=== PATIENT | female | born 2000 | race Caucasian/White ===

== ENCOUNTER 2019-01-15 02:36 | Emergency (ER) | payer MEDICAID, SELFPAY ==
[2019-01-15 02:37] VITALS: BP 143/75; PULSE 105; RESP 16; TEMP 36.7; O2SAT 98; BMI 53.0
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
--- NOTE | 2019-01-15 02:58 | RAD_ITS ---
STUDY: X-RAY CHEST REASON FOR EXAM: Female, 18 years old. Pain TECHNIQUE: PA and lateral COMPARISON: None. FINDINGS: The lungs are clear and expanded. There is no demonstrated pleural abnormality. Normal size heart. Normal mediastinum and puneet. Normal visualized pulmonary arteries. Normal visualized aortic arch and descending thoracic aorta. Normal visualized thoracic spine. Normal visualized ribs, clavicles, and shoulders. There is no demonstrated abnormality of the visualized soft tissue structures of the upper abdomen. RAD/Chest PA and Lateral IMPRESSION: Normal x-ray examination of the chest. Electronically Signed: Isauro Giordano MD at 4:19 EDT , Service support ,
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
[2019-01-15 04:59] VITALS: BP 132/80; PULSE 90; RESP 16; O2SAT 98
== END 2019-01-15 05:00 | disposition home or self-care (01) ==
LOC: ED 03:30
PROVIDERS: Emergency Provider Emergency Medicine
DX: S09.90XA Unspecified injury of head, initial encounter (principal); V49.88XA Car occupant (driver) (passenger) injured in other specified transport accidents, initial encounter; R07.89 Other chest pain
CPT/HCPCS: 70450; 71046; 99284

== ENCOUNTER 2021-08-25 14:32 | Emergency (ER) | payer MEDICAID, SELFPAY ==
[2021-08-25 14:34] VITALS: BP 142/91; PULSE 99; RESP 16; TEMP 36.1; O2SAT 97; BMI 48.2
[2021-08-25 15:41] LABS: Absolute Lymphocyte Count 2.13 X10^3/uL (0.83-4.51); Absolute Neutrophil Count 9.3 X10^3/uL (2.0-7.7); Basophil# 0.04 X10^3/uL; Basophil% 0.3 % (0-1); Eosinophil# 0.11 X10^3/uL; Eosinophils% 0.9 % (0-5); Hematocrit 37.4 % (37-47); Hemoglobin 11.2 g/dL (12.0-15.0); Lymphocyte # 2.13 X10^3/ul (0.83-4.51); Lymphocyte % 17.1 % (19-41); Mean Corp Hgb Conc 29.9 g/dL (32-36); Mean Corpuscular Hgb 23.7 pg (27.0-32.0); Mean Corpuscular Volume 79.1 fL (81-99); Monocyte# 0.83 X10^3/uL; Monocyte% 6.7 % (0-10); NRBC Flagged by Analyzer 0 % (0-5); Neutrophil # 9.32 X10^3/uL (2.7-7.7); Neutrophil % 74.7 % (47-70); Platelet Count 287 K/mm3 (150-450); RBC Distribution Width CV 16.4 % (11.6-14.6); RBC Distribution Width SD 47.2 fl (35.1-43.9); Red Blood Count 4.73 M/mm3 (4.2-5.4); White Blood Count 12.5 K/mm3 (4.4-11.0)
[2021-08-25 16:15] LABS: hCG Titer Quant., Serum 2658 mIU/mL (1-3)
--- NOTE | 2021-08-25 16:54 | US_ITS ---
STUDY: FIRST TRIMESTER OBSTETRICAL ULTRASOUND REASON FOR EXAM: Female, 21 years old abnormal bleeding, possible miscarriage LMP: 06/03/21 TECHNIQUE: Transabdominal and Transvaginal TECHNICAL QUALITY: Limited. Examination limited due to patient''s condition. PRIOR ULTRASOUND: None. FINDINGS: There is a gestational sac in the lower uterine segment. The mean sac diameter (MSD) measures 2.31 cm, indicating an estimated gestational age (EGA) of 7 weeks, 2 days. The gestational sac shape is irregular. There is no demonstrated yolk sac. The placenta is non-visualized. There is visualization of an embryo with no cardiac activity, consistent with intrauterine demise. The crown-rump length (CRL) measures 0.66 cm, indicating an estimated gestational age (EGA) of 6 weeks, 4 days. There is no demonstrated cardiac activity. The estimated gestation age (EGA) by LMP is 11 weeks, 6 days. The estimated date of delivery (BK) by LMP is 03/10/2022. The estimated gestation age (EGA) by US is 6 weeks, 6 days. The estimated date of delivery (BK) by US is 04/14/2022. The uterus measures 13.3 x 6.4 x 6.1 cm. There is no demonstrated uterine fibroid. The cervix is closed. Neither ovary visualized There is no fluid in the cul de sac. US/Transvaginal w/Preg US IMPRESSION: There is an abnormal appearing gestational sac within the lower uterine segment. No pole yolk sac or heart rate is identified. Findings suggest demise. [place]-rump length measures 0.66 cm corresponding to ultrasound dating of 6 weeks 4 days and heart rate should be present. No suspicious adnexal mass or free fluid to suspect heterotopic Follow-up recommended to assure no retained POC Electronically Signed: Francisco Hemphill MD at 19:06 EST , Service support ,
--- NOTE | 2021-08-25 17:07 | EDS_ITS ---
HPI HPI - Female History of Present Illness Chief Complaint: Vag Bleeding Informant: patient Pain Pain: Positive for Pelvic Pain Onset: Yesterday Context: Gradual Onset Timing: Continuous Quality: Positive for Cramping and Sharp Location: Suprapubic Current Severity: Severe Maximum Severity: Severe Bleeding Issue: Positive for Vaginal bleeding and Passing clots Current Severity: Heavy Maximum Severity: Heavy Associated Symptoms Associated Symptoms: Positive for Dysuria Test: Positive P: 2 Ab: 0 Narrative Narrative: Patient presents with vaginal bleeding and pelvic cramping that began yesterday. Patient states that she was seen for this last week at [facility]. Patient was referred to [facility] but they were unable to take her insurance. Patient states that last night her cramping and bleeding became worse. Patient states she is passing clots the size of her fist. Patient is 2 para 2 with a set of twins. Patient is approximately 10 weeks . Patient admits to nausea but denies any vomiting. Patient denies any fevers or chills. PFSH PFSH Medical History no medical history no medical history Home Medications ferrous sulfate 324 mg PO DAILY 08/25/21 [History Last Taken Unknown] Allergy/AdvReac Type Severity Reaction Status Date / Time Penicillins Allergy Rash Verified 08/25/21 14:37 Surgical History (Updated 08/25/21 @ 17:[address] Satish Abbott DO) H/O section Hx of elbow surgery Social History Smoking Status: Never smoker ROS ROS ED Constitutional Constitutional ED: Denies chills or fever(s) Eyes Eyes: Denies blurry vision or change in vision ENT ENT ED: Denies rhinorrhea or sore throat Cardiovascular Cardiovascular: Denies chest pain or palpitations Respiratory/Chest Respiratory/Chest: Denies cough or dyspnea Gastrointestinal Gastrointestinal: Reports abdominal pain and nausea; Denies vomiting Genitourinary Genitourinary ED: Reports dysuria and hematuria Musculoskeletal Musculoskeletal: Denies back pain or neck pain Integumentary Denies abscess or rash Neurologic Neurologic: Denies headache(s) or weakness Allergic/Immunologic Allergic/Immunologic ED: Denies mouth swelling or urticaria EXAM Physical Exam Const Vital Signs: 08/25/21 14:34 08/25/21 17:32 08/25/21 19:05 Temperature 96.9 F L 98.9 F Temperature Source Temporal Temporal Pulse Rate 99 97 92 Respiratory Rate 16 14 16 Blood Pressure 142/91 H 125/63 H 122/66 H Blood Pressure Mean 108 83 84 Pulse Ox 97 99 96 Oxygen Delivery Method Room Air Room Air Positive well nourished, well developed and obese General Appearance ED: well developed Nutritional Appearance: obese HEENT Reports moist mucous membranes Neck supple and no JVD Resp normal respiratory effort and clear to auscultation bilaterally Cardio regular rate, regular rhythm and no murmurs GI normal to inspection, nondistended, normoactive bowel sounds Palpation: soft and tender LLQ, RLQ and suprapubic Extremity normal to inspection General Extremety ED: Negative for edema or tenderness General Extremity: Negative for edema Neuro oriented x3, CN's II-XII intact bilaterally and no sensory deficits noted Sensorium / Orientation: alert Motor Exam: strength 5/5 throughout Psych mental status grossly normal Skin no rashes or lesions noted MDM MDM MDM Narrative Medical decision making narrative: Patient was given IV fluids and morphine here. CBC shows a mild leukocytosis of 12.5. Quantitative hCG was 2658. Patient's blood type is a positive. Pelvic ultrasound shows abnormal appearing gestational sac in the lower uterine segment. There is no heart rate noted. This suggest demise. [place]-rump length corresponds to 6-week 4-day gestation. While here in the emergency department, patient passed what appeared to be a gestational sac. Patient's pain improved after this. This was sent for analysis. Patient was instructed to drink plenty of fluids. Patient was given a referral for [facility]. Patient was instructed to follow-up with them in 2 to 3 days. Patient was instructed return if worse in any way. Patient understood and was agreeable with the plan. All questions were answered. Lab Data Attestation: I reviewed the patient's lab results. Labs: Laboratory Results - last 24 hr 08/25/21 08/25/21 08/25/21 15:33 15:33 17:38 WBC 12.5 H RBC 4.73 Hgb 11.2 L Hct 37.4 MCV 79.1 L MCH 23.7 L MCHC 29.9 L RDW Std Deviation 47.2 H RDW Coeff of Gigi 16.4 H Plt Count 287 MPV 10.0 Immature Gran % (Auto) 0.300 Neut % (Auto) 74.7 H Lymph % (Auto) 17.1 L [place] % (Auto) 6.7 Eos % (Auto) 0.9 Baso % (Auto) 0.3 Absolute Neuts (auto) 9.3 H Absolute Lymphs (auto) 2.13 Nucleated RBC % 0 HCG, Quant 2658 H Blood Type TNP 08/25/21 17:38 WBC RBC Hgb Hct MCV MCH MCHC RDW Std Deviation RDW Coeff of Gigi Plt Count MPV Immature Gran % (Auto) Neut % (Auto) Lymph % (Auto) [place] % (Auto) Eos % (Auto) Baso % (Auto) Absolute Neuts (auto) Absolute Lymphs (auto) Nucleated RBC % HCG, Quant Blood Type A POSITIVE Radiography Diagnostic Testing: Clinical Impression(s) from Imaging Studies Obstetrics Ultrasound 08/25/21 16:54 IMPRESSION: There is an abnormal appearing gestational sac within the lower uterine segment. No pole yolk sac or heart rate is identified. Findings suggest demise. [place]-rump length measures 0.66 cm corresponding to ultrasound dating of 6 weeks 4 days and heart rate should be present. No suspicious adnexal mass or free fluid to suspect heterotopic Follow-up recommended to assure no retained POC Electronically Signed: Francisco Hemphill MD at 19:06 EST , Service support , Discharge Plan Triage Chief Complaint: Vag Bleeding ED Provider: Satish Abbott Dx/Rx/DC Orders Clinical Impression: Spontaneous miscarriage Instructions: ED MISCARRIAGE Completed Prescriptions: No Action ferrous sulfate 324 mg (65 mg iron) Tablet,Delayed Release (Dr/Ec) 324 mg PO DAILY RF: 0 Primary Care Provider: Care Physician,No Primary Referrals: Lavinia Martinez MD [STAFF PHYSICIAN] - 3-5 Days Care Physician,No Primary [Primary Care Provider] - Disposition Disposition: Home, Self Care
[2021-08-25] MEDS: Morphine 4 MG/ML Syringe IV ×2 (17:16→18:59)
[2021-08-25] MEDS: 0.9% Normal Saline 1,000 ML 1000 ML IV (17:16)
[2021-08-25 17:32] VITALS: BP 125/63; PULSE 97; RESP 14; TEMP 37.2; O2SAT 99
--- NOTE | 2021-08-25 18:29 | ED.RN ---
pt has passed a large red /clot from vagina. provider aware. no new orders at this.
--- NOTE | 2021-08-25 18:31 | ED.RN ---
pt passed a large clot, possibly gestational sack. provider aware.
[2021-08-25 19:05] VITALS: BP 122/66; PULSE 92; RESP 16; O2SAT 96
[2021-08-25 20:11] LABS: Bedside Glucose 116 mg/dL (70-110)
--- NOTE | 2021-08-25 20:46 | ED.RN ---
home contact in reference to fetus [facility] they will send some one over tomorrow to retrieve body in the morning
[2021-08-25 20:56] VITALS: BP 112/66; PULSE 18; RESP 16; TEMP 37.2; O2SAT 98
== END 2021-08-25 21:03 | disposition home or self-care (01) ==
PROVIDERS: Emergency Provider Emergency Medicine
DX: O03.9 Complete or unspecified spontaneous abortion without complication (principal); E66.9 Obesity, unspecified; Z68.42 Body mass index [BMI] 45.0-49.9, adult; Z3A.10 10 weeks gestation of pregnancy
CPT/HCPCS: 76817; 82962; 84702; 85025; 86900; 86901; 96361; 96374; 96376; 99283; J7030; A4216

== ENCOUNTER 2023-08-27 09:55 | Emergency (ER) | payer MEDICAID, SELFPAY ==
[2023-08-27 09:55] VITALS: BP 164/88; PULSE 124; RESP 18; TEMP 36.2; O2SAT 99
--- NOTE | 2023-08-27 10:08 | EX.ED.DYSGE1 ---
HPI History of Present Illness Chief Complaint: Allergic Reaction Informant: patient Narrative Narrative: Patient states she clean her carpets yesterday, and then subsequently yesterday evening she was rolling around on the carpet playing with her children and started itching all over on her extremities. Today she is so itchy that she cannot stand at. She denies any dyspnea, edema, syncope. Basically extremities are involved, not her trunk where she had clothes on. Last night she took some Benadryl and it did not help, so she took Tylenol last night and this morning, which did not help either. She denies having any pain, she was just trying to use something that she had. [facility] Medical History (Updated 08/27/23 @ 10:[address] Rajan Ramirez MD) Hypothyroid Medical History no medical history Home Medications ferrous sulfate 324 mg (65 mg iron) tablet,delayed release 324 mg PO DAILY 08/25/21 [History Last Taken Unknown] prednisone 20 mg tablet 40 mg (2 x 20 mg) PO DAILY 5 days #10 TABLETS 08/27/23 [Rx Last Taken Unknown] Allergy/AdvReac Type Severity Reaction Status Date / Time Penicillins Allergy Rash Verified 08/25/21 14:37 Surgical History H/O section Hx of elbow surgery Social History Smoking Status: Never smoker ROS ROS ED Constitutional Constitutional ED: Denies chills or fever(s) Eyes Eyes: Denies change in vision or diplopia ENT ENT ED: Denies rhinorrhea or sore throat Cardiovascular Cardiovascular: Denies chest pain or palpitations Respiratory/Chest Respiratory/Chest: Denies cough or dyspnea Gastrointestinal Gastrointestinal: Denies abdominal pain, diarrhea, nausea or vomiting Genitourinary Genitourinary ED: Denies dysuria or hematuria Musculoskeletal Musculoskeletal: Denies back pain or neck pain Integumentary Reports rash; Denies abscess Neurologic Neurologic: Denies headache(s), paresthesias or weakness Psychiatric Psychiatric: Denies anxiety or suicidal thoughts EXAM Physical Exam Const Vital Signs: 08/27/23 09:55 Temperature 97.2 F L Temperature Source Temporal Pulse Rate 124 H Respiratory Rate 18 Blood Pressure 164/88 H Blood Pressure Mean 113 Pulse Ox 99 Oxygen Delivery Method Room Air Positive well nourished, well developed and obese General Appearance ED: well developed and NAD Nutritional Appearance: obese HEENT Reports moist mucous membranes normocephalic and atraumatic Eyes PERRL and EOMs intact bilaterally Neck full ROM and supple Resp normal respiratory effort Effort and Inspection: able to speak in complete sentences Back/Spine General Back: other FROM Extremity General Extremety ED: Negative for edema or tenderness General Extremity: Negative for edema Neuro oriented x3, CN's II-XII intact bilaterally and no sensory deficits noted Sensorium / Orientation: awake and alert Motor Exam: strength 5/5 throughout Psych Mood & Affect: anxious Skin no wounds Skin Narrative: Diffuse hyperemia on all 4 extremities. No purpura, petechiae, bullae, or anything raised. MDM MDM MDM Narrative Medical decision making narrative: We will give patient a dose of loratadine as well as a course of prednisone with the first dose being given here. Discharge Plan Triage Chief Complaint: Allergic Reaction Other Complaint: Rash ED Provider: Rajan Ramirez Dx/Rx/DC Orders Clinical Impression: Contact dermatitis Instructions: ED Contact Dermatitis Prescriptions: New prednisone 20 mg tablet 40 mg PO DAILY 5 Days Qty: 10 0RF No Action ferrous sulfate 324 mg (65 mg iron) Tablet,Delayed Release (Dr/Ec) 324 mg PO DAILY Primary Care Provider: Care Physician,No Primary Referrals: Doctor,Your [Non-Staff] - 3-5 Days if not improving Disposition Disposition: Home, Self Care
[2023-08-27] MEDS: predniSONE 20 MG Tablet 60 MG PO (10:53)
[2023-08-27] MEDS: Loratadine 10 MG Tablet PO (10:53)
== END 2023-08-27 10:58 | disposition home or self-care (01) ==
LOC: ED 10:39
PROVIDERS: Emergency Provider Emergency Medicine; PCP Nurse Practitioner Family; Visit Provider Emergency Medicine
DX: L25.9 Unspecified contact dermatitis, unspecified cause (principal)
CPT/HCPCS: 99283